=== PATIENT | female | born 1955 | race African-American/Black ===

== ENCOUNTER → 2017-07-30 | Outpatient (CLI) | payer MEDICARE, OTHER | END | disposition home or self-care (01) | LOC: C/S 10:24 | DX: Z02.9 Encounter for administrative examinations, unspecified (principal) ==

== ENCOUNTER → 2017-08-07 | Outpatient (CLI) | payer MEDICARE, OTHER ==
[2017-08-07] MEDS: IOHEXOL 300MG/ML 150 ML BTL (12:24)
[2017-08-07] MEDS: SOD CHLORIDE 0.9% 100 ML (12:24)
== END | disposition home or self-care (01) ==
LOC: C/S 11:42
DX: R07.9 Chest pain, unspecified (principal)
CPT/HCPCS: 71270